=== PATIENT | female | born 2000 | race Caucasian/White ===

== ENCOUNTER 2025-03-24 07:31 | Emergency (ER) | payer SELFPAY ==
[~2025-03-24] VITALS: Ht 154.9 cm; Wt 77.0 kg
[2025-03-24 07:34] VITALS: TEMP 36.7; O2SAT 98
[2025-03-24] MEDS ORDERED: LIDOCAINE HCL/EPINEPHRINE 1%-EPI 1:100,000 20ML VIAL INFIL ONE (09:00)
[2025-03-24] MEDS ORDERED: BACITRACIN ZINC OINT UDPKT TOP ONE (09:00)
[2025-03-24 09:59] VITALS: BP 140/86; PULSE 87; RESP 14; O2SAT 99
== END 2025-03-24 10:01 | disposition home or self-care (01) ==
LOC: ER 07:31
DX: S51.812A Laceration without foreign body of left forearm, initial encounter (principal); W26.0XXA Contact with knife, initial encounter; Y93.G3 Activity, cooking and baking; Y92.89 Other specified places as the place of occurrence of the external cause; Y99.8 Other external cause status
CPT/HCPCS: 12034; 99283; J2004; Z7610; 12004

== ENCOUNTER 2025-04-06 08:36 | Emergency (ER) | payer SELFPAY ==
[~2025-04-06] VITALS: Ht 170.2 cm; Wt 95.0 kg
[2025-04-06 08:49] VITALS: TEMP 36.8; O2SAT 98
[2025-04-06 09:28] VITALS: BP 140/83; PULSE 85; RESP 16; O2SAT 100
== END 2025-04-06 09:32 | disposition home or self-care (01) ==
LOC: ER 08:36
DX: S51.812D Laceration without foreign body of left forearm, subsequent encounter (principal); Z98.890 Other specified postprocedural states; X58.XXXD Exposure to other specified factors, subsequent encounter
CPT/HCPCS: 99281; Z7610 ×3; A4606